=== PATIENT | female | born 1995 | race Caucasian/White ===

== ENCOUNTER 2018-10-26 17:06 | Emergency (ER) | payer BC ==
[~2018-10-26] VITALS: Ht 165.1 cm; Wt 44.5 kg
[2018-10-26 18:29] VITALS: BP 105/59
[2018-10-26] MEDS: IBUPROFEN 600 MG TABLET. PO ONE (18:58)
[2018-10-26] MEDS: DEXAMETHASONE 4 MG TABLET PO ONE (18:58)
[2018-10-26] MEDS ORDERED: IBUP-1007 PO (19:08)
--- NOTE | 2018-10-26 19:08 | PHYS DOC ---
Past Medical History Past Medical History: No Pertinent History (ROSAS VERDUGO APRN) Past Surgical History: Other Additional Past Surgical Histo: IMPLANTED CONTROL, MRSA REMOVAL (ROSAS VERDUGO APRN) Alcohol Use: None Drug Use: None (ROSAS VERDUGO APRN) Adult General Chief Complaint Chief Complaint: SORE THROAT HPI HPI Patient is a 23 year old female who presents with sore throat since she awoke this morning. Patient denies any fever or any other symptoms. (ROSAS VERDUGO APRN) Review of Systems Review of Systems Constitutional: Denies fever or chills [] Eyes: Denies change in visual acuity, redness, or eye pain [] HENT: Denies nasal congestion.+ sore throat [] Respiratory: Denies cough or shortness of breath [] Cardiovascular: No additional information not addressed in HPI [] GI: Denies abdominal pain, nausea, vomiting, bloody stools or diarrhea [] : Denies dysuria or hematuria [] Musculoskeletal: Denies back pain or joint pain [] Integument: Denies rash or skin lesions [] Neurologic: Denies headache, focal weakness or sensory changes [] Endocrine: Denies polyuria or polydipsia [] All other systems were reviewed and found to be within normal limits, except as documented in this note. (ROSAS VERDUGO APRN) Current Medications Current Medications Current Medications Medications (Trade) Dose Ordered Sig/Albino Start Time Stop Time Status Last Admin Dose Admin Dexamethasone (Decadron) 8 mg 1X ONCE 10/26/18 18:45 10/26/18 18:49 DC 10/26/18 18:58 8 MG Ibuprofen (Motrin) 600 mg 1X ONCE 10/26/18 18:45 10/26/18 18:49 DC 10/26/18 18:58 600 MG (PAMELA CHRISTOPHER DO) Allergies Allergies Allergies Coded Allergies Type Severity Reaction Last Updated Verified No Known Drug Allergies 10/26/18 No (PAMELA CHRISTOPHER DO) Physical Exam Physical Exam Constitutional: Well developed, well nourished, no acute distress, non-toxic appearance. [] HENT: Normocephalic, atraumatic, bilateral external ears normal, oropharynx moist, no oral exudates, nose normal. Slight swelling of the tonsils.[] Eyes: PERRLA, EOMI, conjunctiva normal, no discharge. [] Neck: Normal range of motion, no tenderness, supple, no stridor. [] Cardiovascular:Heart rate regular rhythm, no murmur [] Lungs & Thorax: Bilateral breath sounds clear to auscultation [] Abdomen: Bowel sounds normal, soft, no tenderness, no masses, no pulsatile masses. [] Skin: Warm, dry, no erythema, no rash. [] Back: No tenderness, no CVA tenderness. [] Extremities: No tenderness, no cyanosis, no clubbing, ROM intact, no edema. [] Neurologic: Alert and oriented X 3, normal motor function, normal sensory function, no focal deficits noted. [] Psychologic: Affect normal, judgement normal, mood normal. [] (ROSAS VERDUGO APRN) Current Patient Data Vital Signs Vital Signs Date Time Temp Pulse Resp B/P (MAP) Pulse Ox O2 Delivery O2 Flow Rate FiO2 10/26/18 18:29 99.4 86 16 105/59 (74) 99 Room Air 99.4 (PAMELA CHRISTOPHER DO) Lab Values Laboratory Tests Test 10/26/18 18:40 Group A Streptococcus Rapid Negative (NEGATIVE) (PAMELA CHRISTOPHER DO) Lab Values Laboratory Tests Test 10/26/18 18:40 Group A Streptococcus Rapid Negative (NEGATIVE) (ROSAS VERDUGO APRN) EKG EKG [] (ROSAS VERDUGO APRN) Radiology/Procedures Radiology/Procedures [] (ROSAS VERDUGO APRN) Course & Med Decision Making Course & Med Decision Making Patient is a 23 year old female who presents with sore throat since she awoke this morning. Patient denies any fever or any other symptoms. Patient speaks in full clear sentences. Lungs are clear to auscultation all lobes. Heart is reddened and slight swelling and there are no exudates. There are no lymph nodes felt. Patient is given Decadron in the ED. Strep is negative. Patient denies nausea, vomiting, diarrhea, abdominal pain, headache, any other cold symptoms. Patient will need to follow-up with her primary care doctor if she continues to get worse. She states ibuprofen and try saltwater gargles and continue using Chloraseptic [place]. (ROSAS VERDUGO APRN) Dragon Disclaimer Dragon Disclaimer This electronic medical record was generated, in whole or in part, using a voice recognition dictation system. (ROSAS VERDUGO APRN) Departure Departure Impression: Primary Impression: Sore throat (viral) Disposition: HOME, SELF-CARE Condition: STABLE Referrals: UNKNOWN PCP NAME (PCP) Patient Instructions: Sore Throat Additional Instructions: Follow up with primary care provider. Take medications as prescribed. Continue using Chloraseptic spray. Scripts Ibuprofen (IBUPROFEN) 600 Mg Tablet 600 MG PO PRN Q6HRS PRN for INFLAMMATION, #20 TAB Prov: ROSAS VERDUGO APRN 10/26/18 Attending Signature Attending Signature I have reviewed the PA/SQL SERVER BI DEVELOPER's note and plan of care. I was available for consultation as needed during the patient's visit in the emergency department. I agree with the clinical impression, plan, and disposition. (PAMELA CHRISTOPHER DO) ROSAS VERDUGO APRN Oct 26, 2018 19:08 PAMELA CHRISTOPHER DO Oct 29, 2018 00:30
== END 2018-10-26 19:14 | disposition home or self-care (01) ==
LOC: ER 17:06
DX: J02.8 Acute pharyngitis due to other specified organisms (principal); B97.89 Other viral agents as the cause of diseases classified elsewhere
CPT/HCPCS: 87070; 87880; 99283; J8540; 99284-25

== ENCOUNTER 2020-10-20 14:29 | Inpatient (IN) | payer BC, OTHER ==
[~2020-10-20] VITALS: Ht 165.1 cm; Wt 44.0 kg
[~2020-10-20 14:29] MED LIST: IBUP-1007 PO
[2020-10-20] MEDS ORDERED: IV NORMAL SALINE 1000ML BAG 1,000 ML IV ONE ×2 (15:15→16:00)
[2020-10-20] MEDS ORDERED: DEXAMETHASONE 4 MG TABLET PO ONE (15:15)
[2020-10-20] MEDS ORDERED: KETOROLAC 30 MG/ML VIAL. IVP ONE (15:15)
[2020-10-20] MEDS ORDERED: DEXAMETHASONE SOD PHOS 20 MG/5 ML VIAL. IV ONE (15:15)
--- NOTE | 2020-10-20 15:15 | PHYS DOC ---
Past Medical History Past Medical History: No Pertinent History Past Surgical History: Other Additional Past Surgical Histo: IMPLANTED CONTROL, MRSA REMOVAL Smoking Status: Current Every Day Smoker Alcohol Use: None Drug Use: None General Adult EDM: Chief Complaint: SORE THROAT HPI: HPI: Patient is a 25 year old female who presents with sore throat x2 days. She states that she can swallow fluids but it hurts too bad. She states she is been taking Tussin and using throat spray. She denies fever, nausea, vomiting, diarrhea, cough, shortness of breath, chest pain, dizziness, headache, nasal congestion. Patient rates her pain a 10 out of 10. She states her neck is sore. Patient has a history of MRSA, implanted control and she is a smoker. Review of Systems: Review of Systems: Constitutional: Denies fever or chills. [] Eyes: Denies change in visual acuity. [] HENT: Denies nasal congestion. + sore throat. [] Respiratory: Denies cough or shortness of breath. [] Cardiovascular: Denies chest pain or edema. [] GI: Denies abdominal pain, nausea, vomiting, bloody stools or diarrhea. [] : Denies dysuria. [] Musculoskeletal: Denies back pain or joint pain. [] Integument: Denies rash. [] Neurologic: Denies headache, focal weakness or sensory changes. [] Endocrine: Denies polyuria or polydipsia. [] Lymphatic: Denies swollen glands. [] Psychiatric: Denies depression or anxiety. [] Heart Score: Risk Factors: Risk Factors: DM, Current or recent (<one month) smoker, HTN, HLP, family history of CAD, obesity. Risk Scores: Score 0 - 3: 2.5% MACE over next 6 weeks - Discharge Home Score 4 - 6: 20.3% MACE over next 6 weeks - Admit for Clinical Observation Score 7 - 10: 72.7% MACE over next 6 weeks - Early Invasive Strategies Current Medications: Current Medications Medications (Trade) Dose Ordered Sig/Albino Start Time Stop Time Status Last Admin Dose Admin Dexamethasone (Decadron) 10 mg 1X ONCE 10/20/20 15:15 10/20/20 15:16 Cancel Dexamethasone Sodium Phosphate (Decadron) 10 mg 1X ONCE 10/20/20 15:15 10/20/20 15:16 Ketorolac Tromethamine (Toradol 30mg Vial) 30 mg 1X ONCE 10/20/20 15:15 10/20/20 15:16 Sodium Chloride 1,000 ml @ 1,000 mls/hr 1X ONCE 10/20/20 15:15 10/20/20 16:14 Allergies: Allergies: Allergies Coded Allergies Type Severity Reaction Last Updated Verified No Known Drug Allergies 10/26/18 No Physical Exam: PE: Constitutional: Well developed, well nourished, no acute distress, non-toxic appearance. [] HENT: Normocephalic, atraumatic, bilateral external ears normal, oropharynx moist, no oral exudates, nose normal. Bilateral tonsils 2+ and uvula midline but reddened. [] Eyes: PERRLA, EOMI, conjunctiva normal, no discharge. [] Neck: Normal range of motion, no tenderness, supple, no stridor. [] Cardiovascular:Heart rate regular rhythm, no murmur [] Lungs & Thorax: Bilateral breath sounds clear to auscultation [] Abdomen: Bowel sounds normal, soft, no tenderness, no masses, no pulsatile masses. [] Skin: Warm, dry, no erythema, no rash. [] Back: No tenderness, no CVA tenderness. [] Extremities: No tenderness, no cyanosis, no clubbing, ROM intact, no edema. [] Neurologic: Alert and oriented X 3, normal motor function, normal sensory function, no focal deficits noted. [] Psychologic: Affect normal, judgement normal, mood normal. [] Current Patient Data: Vital Signs: Vital Signs Date Time Temp Pulse Resp B/P (MAP) Pulse Ox O2 Delivery O2 Flow Rate FiO2 10/20/20 14:38 99.0 138 18 123/71 (88) 98 Room Air 99.0 EKG: EK and read by Dr. Jones as sinus tachycardia no STEMI. Radiology/Procedures: Radiology/Procedures: [] Impression: [facility] [address] [place] [address] IMAGING REPORT Signed PATIENT: KEVON COMER ACCOUNT: [id number] : 1995 LOCATION: ER AGE: 25 SEX: F EXAM STATUS: REG ER ORD. PHYSICIAN: ROSAS VERDUGO APRN REASON: throat pain, swelling PROCEDURE: CT SOFT TISSUE NECK W/CONTRAST CT soft tissue neck with contrast: Reason for examination: Throat pain and swelling. Helical images were obtained through the neck with intravenous administration of 70 cc of Omnipaque 300. Reconstruction was performed in sagittal and coronal planes. Exposure: One or more of the following individualized dose reduction techniques were utilized for this examination: 1. Automated exposure control 2. Ad justment of the mA and/or kV according to patient size 3. Use of iterative reconstruction technique. No abnormalities of seen at the orbits. Lacrimal glands are symmetric. The paranasal sinuses show a small 1.6 x 0.9 cm polypoid lesion in the right sphen oid sinus and a small 8.8 x 6.3 mm polypoid lesion inferiorly in the right maxillary antrum. There is mild mucosal disease in a few of the ethmoid air cells. Mastoid air cells are clear. The bony fields of the sinuses are intact. No abnormalities of seen at the parotid or submandibular glands. Muscular bundles in the face and neck appear to be symmetric. Vascular structures show no focal abnormalities. The trachea and visualized portion of the esophagus show no abnormalities. No abnormality seen at the thyroid gland. Vocal cords are symmetric. The vallecula and piriform sinuses are symmetric. There is some edema in the nasopharyngeal region bilaterally, right greater than left. There is some heterogeneous decreased density in the right nasopharyngeal region but a definite abscess is not identified. In the right hypopharyngeal region however there is asymmetric edema on the right with a small 6.5 x 3.2 x 7.3 mm hypodensity which may represent a small abscess bulging into the pharynx. No abnormality seen at the epiglottis and airway is patent with no narrowing. There is some mild reactive adenopathy in the submandibular region. No abnormality seen at the mandible or cervical spine. IMPRESSION: Edema in the nasopharyngeal region bilaterally, right greater than left with some heterogeneous density in the right pharyngeal region but no definite abscess is seen. In the hypopharyngeal region on the right however, there is a asymmetric edema with a small 6.5 x 3.2 x 7.3 mm hypodensity which may represent a small abscess with bulging into the pharynx. Small polypoid lesions in the right sphenoid sinus and right maxillary antrum. Electronically signed by: Genevieve Noland MD (10/20/2020 4:51 PM) [facility] DICTATED and SIGNED BY: GENEVIEVE NOLAND MD DATE: 10/20/20 [id number] 0 Course & Med Decision Making: Course & Med Decision Making Pertinent Labs and Imaging studies reviewed. (See chart for details) See HPI. Patient is uncooperative during examination will not open mouth wide enough to look. I could see the arches of her tonsils bilaterally are reddened and appear to be 2+ swollen and uvula looks to be midline but reddened. Patient does have some trismus. She has right-sided neck tenderness with palpation. Afebrile. Unable to get a good examination or look at the tonsils due to patient not opening her mouth wide enough and pulling back during examination. Patient states she is able to swallow fluids but is painful. She is given dexamethasone and Toradol in the ED. alert and oriented x4. Speaks in a low full but clear sentences. Skin pink warm and dry. [] CT shows : IMPRESSION: Edema in the nasopharyngeal region bilaterally, right greater than left with some heterogeneous density in the right pharyngeal region but no definite abscess is seen. In the hypopharyngeal region on the right however, there is a asymmetric edema with a small 6.5 x 3.2 x 7.3 mm hypodensity which may represent a small abscess with bulging into the pharynx. Small polypoid lesions in the right sphenoid sinus and right maxillary antrum. Patient's white count is elevated. Her heart rate is also elevated upon arrival and after 2 bags of fluid it is still remaining at 116. Lactic acid is normal. She is given Zosyn in the ED. patient meets SIRS criteria. It is explained to the patient that she has an abscess and it could be life-threatening if it gets bigger and she does not respond to antibiotics at home and it could possibly close off her airway. This is explained to her by me and Dr. Olmos. Patient is very anxious, tearful and she states that she does not want to stay without her family. She states that she does not want to or risk of dying either. Patient states that she will stay. Her urine shows trichomonas. I have treat her with a one-time dose of 2 g of Flagyl here in the ED given her Zofran. Patient is asking if she can go smoke. I told patient smoking is not allowed. I have ordered her nicotine patch. I have also asked her if she wants any food to eat at this time and she refuses. Patient's urine drug screen is positive for amphetamines. At this time patient is agreeing to be admitted to the hospital. She will be admitted by the hospitalist. Mary Disclaimer: Mary Disclaimer: This electronic medical record was generated, in whole or in part, using a voice recognition dictation system. Date and Time of Reassessment Date: Oct 20, 2020 Time: 17:47 Fluid Challenge Is the fluid challenge complet: No IBW Target Volume Used: No BMI > 30: No Vital Signs Vital Signs: Vital Signs Date Time Temp Pulse Resp B/P (MAP) Pulse Ox O2 Delivery O2 Flow Rate FiO2 10/20/20 14:38 99.0 138 18 123/71 (88) 98 Room Air 99.0 Temperature Source: Oral Respirations Respiratory Effort: Normal Respiratory Pattern: Normal Cardiovascular Pulse Rhythm: Regular Heart: Nml rate, reg. rhythm Lung Sounds Breath Sounds: Clear Capillary Refil Capillary Refill: Rt Hand < 3 seconds Peripheral Pulse Pulse Location: Radial Pulse Strength: Normal (2+) Pulse Assessment Method: Monitor Integumentary Skin: Warm Skin Moisture: Dry Skin Turgor: Normal Skin Color: warm Fingernail Color: WNL Departure Departure Impression: Primary Impression: Abscess of tonsil Additional Impressions: Strep throat SIRS (systemic inflammatory response syndrome) Trichomoniasis of bladder Disposition: 09 ADMITTED INPT THIS HOSP Admitting Physician: GOLD Condition: STABLE Referrals: NO PCP (PCP) ROSAS VERDUGO APRN Oct 20, 2020 15:15
[2020-10-20 15:33] LABS: BASO # 0.1 x10^3/uL (0.0-0.2); BASO % 0 % (0-3); EOS # 0.1 x10^3/uL (0.0-0.7); EOS % 1 % (0-3); HEMATOCRIT 44.4 % (36.0-47.0); HEMOGLOBIN 15.1 g/dL (12.0-15.5); LYMPH # 1.7 x10^3/uL (1.0-4.8); LYMPH % 13 % (24-48); MEAN CORPUSCULAR HEMOGLOBIN 31 pg (25-35); MEAN CORPUSCULAR HGB CONC 34 g/dL (31-37); MEAN CORPUSCULAR VOLUME 90 fL (79-100); MONO # 0.8 x10^3/uL (0.0-1.1); MONO % 6 % (0-9); NEUT # 10.7 x10^3/uL (1.8-7.7); NEUT % 81 % (31-73); PLATELET COUNT 239 x10^3/uL (140-400); RED BLOOD COUNT 4.92 x10^6/uL (3.50-5.40); RED CELL DISTRIBUTION WIDTH 12.9 % (11.5-14.5); WHITE BLOOD COUNT 13.2 x10^3/uL (4.0-11.0)
[2020-10-20 15:42] LABS: CALCIUM 9.1 mg/dL (8.5-10.1); CREATININE 0.8 mg/dL (0.6-1.0); GFR 87.4; POTASSIUM 3.6 mmol/L (3.5-5.1)
[2020-10-20] MEDS ORDERED: CONTRAST GIVEN. MC PRN (15:45)
[2020-10-20] MEDS ORDERED: IOHEXOL 300 MG/ML 100ML VIAL. IV ONE (15:45)
[2020-10-20 15:49] LABS: ALBUMIN 4.2 g/dL (3.4-5.0); ALBUMIN/GLOBULIN RATIO 1.1 (1.0-1.7); PREG TEST PT QUAL NEGATIVE (NEG); TOTAL BILIRUBIN 0.9 mg/dL (0.2-1.0); TOTAL PROTEIN 8.2 g/dL (6.4-8.2)
[2020-10-20] MEDS ORDERED: PIPERACILLIN/TAZOBACTAM 3.375 GM in IV NORMAL SALINE 50ML 50 ML IV ONE (16:00)
--- NOTE | 2020-10-20 16:57 | RAD ---
CT soft tissue neck with contrast: Reason for examination: Throat pain and swelling. Helical images were obtained through the neck with intravenous administration of 70 cc of Omnipaque 3 00. Reconstruction was performed in sagittal and coronal planes. Exposure: One or more of the following individualized dose reduction techniques were utilized for thi s examination: 1. Automated exposure control 2. Adjustment of the mA and/or kV according to patient size 3. Use of iterative reconstruction technique. No abnormalities of seen at the orbits. Lacrimal glands are symmetric. The paranasal sinuses show a s mall 1.6 x 0.9 cm polypoid lesion in the right sphenoid sinus and a small 8.8 x 6.3 mm polypoid lesio n inferiorly in the right maxillary antrum. There is mild mucosal disease in a few of the ethmoid air cells. Mastoid air cells are clear. The bony fields of the sinuses are intact. No abnormalities of se en at the parotid or submandibular glands. Muscular bundles in the face and neck appear to be symmetr ic. Vascular structures show no focal abnormalities. The trachea and visualized portion of the esopha ml show no abnormalities. No abnormality seen at the thyroid gland. Vocal cords are symmetric. The v allecula and piriform sinuses are symmetric. There is some edema in the nasopharyngeal region bilater ally, right greater than left. There is some heterogeneous decreased density in the right nasopharyng eal region but a definite abscess is not identified. In the right hypopharyngeal region however there is asymmetric edema on the right with a small 6.5 x 3.2 x 7.3 mm hypodensity which may represent a s mall abscess bulging into the pharynx. No abnormality seen at the epiglottis and airway is patent wit h no narrowing. There is some mild reactive adenopathy in the submandibular region. No abnormality se en at the mandible or cervical spine. IMPRESSION: Edema in the nasopharyngeal region bilaterally, right greater than left with some heterogeneous densi ty in the right pharyngeal region but no definite abscess is seen. In the hypopharyngeal region on the right however, there is a asymmetric edema with a small 6.5 x 3.2 x 7.3 mm hypodensity which may represent a small abscess with bulging into the pharynx. Small polypoid lesions in the right sphenoid sinus and right maxillary antrum. Electronically signed by: Meri Alonso MD (10/20/2020 4:51 PM) [facility]
[2020-10-20 17:08] LABS: BILIRUBIN,URINE NEGATIVE (NEG); CLARITY,URINE CLEAR; COLOR,URINE YELLOW; NITRITE,URINE NEGATIVE (NEG); PH,URINE 6.5 (<5.0-8.0); PROTEIN,URINE NEGATIVE (NEG-TRACE); UROBILINOGEN,URINE 0.2 mg/dL (0.2 mg/dL)
[2020-10-20 17:14] LABS: BACTERIA,URINE 0 /HPF (0-FEW); BARBITURATES NEG (NEG); BENZODIAZEPINES NEG (NEG); CANNABINOIDS NEG (NEG); COCAINE NEG (NEG); METHADONE NEG (NEG); OPIATES NEG (NEG); PHENCYCLIDINE NEG (NEG); TRICHOMONAS,URINE PRESENT
[2020-10-20 17:15] LABS: AMPHETAMINE/METHAMPHETAMINE POS (NEG)
[2020-10-20] MEDS ORDERED: ONDANSETRON PF 4 MG/2 ML VIAL. IVP ONE (17:30)
[2020-10-20] MEDS ORDERED: metroNIDAZOLE 500 MG TABLET PO ONE (17:30)
[2020-10-20] MEDS ORDERED: NICOTINE 21MG PATCH. TD ONE (17:45)
--- NOTE | 2020-10-20 17:55 | PDOC1 ---
History and Physical Date of Service: DOS: DATE: 10/20/20 TIME: 17:46 Chief Complaint: Chief Complain: Sore throat History of Present Illness: HPI: 25 year old female who presents with sore throat x2 days. She states that she can swallow fluids but it hurts too bad. She states she is been taking Tussin and using throat spray. She denies fever, nausea, vomiting, diarrhea, cough, shortness of breath, chest pain, dizziness, headache, nasal congestion. Patient rates her pain a 10 out of 10. She states her neck is sore. Patient has a history of MRSA, implanted control and she is a smoker. Past Medical/Surgical History: PMH/PSH: Past Medical History: Hx of MRSA Past Surgical History: IMPLANTED CONTROL Allergies: Allergies: Coded Allergies: No Known Drug Allergies (Unverified , 10/26/18) Family History: Family History: Reviewed with no relevant findings Social History: Social History: Smoking Status: Current Every Day Smoker Alcohol Use: None Drug Use: None Current Medications: Current Medications Current Medications Dexamethasone (Decadron) 10 mg 1X ONCE PO ; Start 10/20/20 at 15:15; Stop 10/20/20 at 15:16; Status Cancel Dexamethasone Sodium Phosphate (Decadron) 10 mg 1X ONCE IV Last administered on 10/20/20at 16:10; Start 10/20/20 at 15:15; Stop 10/20/20 at 15:16; Status DC Sodium Chloride 1,000 ml @ 1,000 mls/hr 1X ONCE IV Last administered on 10/20/20at 16:09; Start 10/20/20 at 15:15; Stop 10/20/20 at 16:14; Status DC Ketorolac Tromethamine (Toradol 30mg Vial) 30 mg 1X ONCE IVP Last administered on 10/20/20at 16:09; Start 10/20/20 at 15:15; Stop 10/20/20 at 15:16; Status DC Iohexol (Omnipaque 300 Mg/ml) 70 ml 1X ONCE IV Last administered on 10/20/20at 16:04; Start 10/20/20 at 15:45; Stop 10/20/20 at 15:46; Status DC Info (CONTRAST GIVEN -- Rx MONITORING) 1 each PRN DAILY PRN MC SEE COMMENTS; Start 10/20/20 at 15:45; Stop 10/22/20 at 15:44 Sodium Chloride 1,000 ml @ 1,000 mls/hr 1X ONCE IV Last administered on 10/20/20at 16:12; Start 10/20/20 at 16:00; Stop 10/20/20 at 16:59; Status DC Piperacillin Sod/ Tazobactam Sod 3.375 gm/Sodium Chloride 50 ml @ 100 mls/hr 1X ONCE IV Last administered on 10/20/20at 16:09; Start 10/20/20 at 16:00; Stop 10/20/20 at 16:29; Status DC Metronidazole (Flagyl) 2,000 mg 1X ONCE PO Last administered on 10/20/20at 17:28; Start 10/20/20 at 17:30; Stop 10/20/20 at 17:31; Status DC Ondansetron HCl (Zofran) 4 mg 1X ONCE IVP Last administered on 10/20/20at 17:27; Start 10/20/20 at 17:30; Stop 10/20/20 at 17:31; Status DC Nicotine (Nicoderm Cq 21mg) 1 patch 1X ONCE TD ; Start 10/20/20 at 17:45; Stop 10/20/20 at 17:46; Status DC Active Scripts Active Ibuprofen 600 Mg Tablet 600 Mg PO PRN Q6HRS PRN ROS: Review of Systems Review of System REVIEW OF SYSTEMS: GENERAL: Denies weakness SKIN: No bruising, hair changes or rashes. EYES: No blurred, double or loss of vision. NOSE AND THROAT: No history of nosebleeds, hoarseness or sore throat. HEART: No history of palpitations, chest pain or shortness of breath on exertion. LUNGS: Denies cough, hemoptysis, wheezing or shortness of breath. GASTROINTESTINAL: Denies changes in appetite, nausea, vomiting, diarrhea or constipation. GENITOURINARY: No history of frequency, urgency, hesitancy or nocturia. NEUROLOGIC: Denies history of numbness, tingling, or tremor. PSYCHIATRIC: No history of panic, anxiety or depression. ENDOCRINE: No history of heat or cold intolerance, polyuria or polydipsia. EXTREMITIES: Denies joint pain, pain on walking or stiffness. Physical Exam: Vital Signs: Vital Signs Date Time Temp Pulse Resp B/P (MAP) Pulse Ox O2 Delivery O2 Flow Rate FiO2 10/20/20 14:38 99.0 138 18 123/71 (88) 98 Room Air 99.0 Physcial Exam: GEN: No apparent distress. Alert and oriented HEENT: Normal cephalic, atraumatic, external auditory canals are patent EYES: Extraocular muscles are intact, pupil are equally round and reactive to light and accommodation MUSCULOSKELETAL: Well developed , well nourished, good range of motion ENDOCRINE: No thyromegaly was palpated LYMPHATICS: No cervical chain or axillary nodes were noted HEMATOPOIETIC: No bruising NECK: Supple, no JVD, no thyromegaly was noted LUNGS: Clear to auscultation in all lung arcos without rhonchi or wheezing HEART: RRR, S!, S2 present. Peripheral pulses intact, no obvious murmurs not ed ABDOMEN: Soft, nontender. Positive bowel sounds, no organomegaly, normal bowel sounds EXTREMITIES: Without clubbing, cyanosis, or edema. Pedal pulses intact. Negative Homans sign NEUROLOGIC: Normal speech and tone. A&O x 3, moves all extremities, no obvious focal deficits PSYCHIATRIC: Normal affect, normal mood. Stable SKIN: No ulcerations or rashes, good skin turgor, no jaundice VASCULAR: Good capillary refill, neurovascular bundle appears to be intact Labs: Labs: Laboratory Tests Test 10/20/20 15:20 10/20/20 17:00 White Blood Count 13.2 x10^3/uL (4.0-11.0) Red Blood Count 4.92 x10^6/uL (3.50-5.40) Hemoglobin 15.1 g/dL (12.0-15.5) Hematocrit 44.4 % (36.0-47.0) Mean Corpuscular Volume 90 fL (79-100) Mean Corpuscular Hemoglobin 31 pg (25-35) Mean Corpuscular Hemoglobin Concent 34 g/dL (31-37) Red Cell Distribution Width 12.9 % (11.5-14.5) Platelet Count 239 x10^3/uL (140-400) Neutrophils (%) (Auto) 81 % (31-73) Lymphocytes (%) (Auto) 13 % (24-48) Monocytes (%) (Auto) 6 % (0-9) Eosinophils (%) (Auto) 1 % (0-3) Basophils (%) (Auto) 0 % (0-3) Neutrophils # (Auto) 10.7 x10^3/uL (1.8-7.7) Lymphocytes # (Auto) 1.7 x10^3/uL (1.0-4.8) Monocytes # (Auto) 0.8 x10^3/uL (0.0-1.1) Eosinophils # (Auto) 0.1 x10^3/uL (0.0-0.7) Basophils # (Auto) 0.1 x10^3/uL (0.0-0.2) Sodium Level 139 mmol/L (136-145) Potassium Level 3.6 mmol/L (3.5-5.1) Chloride Level 102 mmol/L (98-107) Carbon Dioxide Level 27 mmol/L (21-32) Anion Gap 10 (6-14) Blood Urea Nitrogen 6 mg/dL (7-20) Creatinine 0.8 mg/dL (0.6-1.0) Estimated GFR (Cockcroft-Gault) 87.4 BUN/Creatinine Ratio 8 (6-20) Glucose Level 93 mg/dL (70-99) Lactic Acid Level 0.9 mmol/L (0.4-2.0) Calcium Level 9.1 mg/dL (8.5-10.1) Total Bilirubin 0.9 mg/dL (0.2-1.0) Aspartate Amino Transf (AST/SGOT) 22 U/L (15-37) Alanine Aminotransferase (ALT/SGPT) 33 U/L (14-59) Alkaline Phosphatase 71 U/L (46-116) Total Protein 8.2 g/dL (6.4-8.2) Albumin 4.2 g/dL (3.4-5.0) Albumin/Globulin Ratio 1.1 (1.0-1.7) Serum Test, Qualitative Negative (NEG) Urine Collection Type Unknown Urine Color Yellow Urine Clarity Clear Urine pH 6.5 (<5.0-8.0) Urine Specific [place] >=1.030 (1.000-1.030) Urine Protein Negative mg/dL (NEG-TRACE) Urine Glucose (UA) Negative mg/dL (NEG) Urine Ketones (Stick) Trace mg/dL (NEG) Urine Blood Large (NEG) Urine Nitrite Negative (NEG) Urine Bilirubin Negative (NEG) Urine Urobilinogen Dipstick 0.2 mg/dL (0.2 mg/dL) Urine Leukocyte Esterase Small (NEG) Urine RBC 6-10 /HPF (0-2) Urine WBC 5-10 /HPF (0-4) Urine Squamous Epithelial Cells Mod /LPF Urine Bacteria 0 /HPF (0-FEW) Urine Mucus Slight /LPF Urine Trichomonas Present Urine Opiates Screen Neg (NEG) Urine Methadone Screen Neg (NEG) Urine Barbiturates Neg (NEG) Urine Phencyclidine Screen Neg (NEG) Urine Amphetamine/Methamphetamine Pos (NEG) Urine Benzodiazepines Screen Neg (NEG) Urine Cocaine Screen Neg (NEG) Urine Cannabinoids Screen Neg (NEG) Urine Ethyl Alcohol Neg (NEG) Laboratory Tests Test 10/20/20 15:20 10/20/20 17:00 White Blood Count 13.2 x10^3/uL (4.0-11.0) Red Blood Count 4.92 x10^6/uL (3.50-5.40) Hemoglobin 15.1 g/dL (12.0-15.5) Hematocrit 44.4 % (36.0-47.0) Mean Corpuscular Volume 90 fL (79-100) Mean Corpuscular Hemoglobin 31 pg (25-35) Mean Corpuscular Hemoglobin Concent 34 g/dL (31-37) Red Cell Distribution Width 12.9 % (11.5-14.5) Platelet Count 239 x10^3/uL (140-400) Neutrophils (%) (Auto) 81 % (31-73) Lymphocytes (%) (Auto) 13 % (24-48) Monocytes (%) (Auto) 6 % (0-9) Eosinophils (%) (Auto) 1 % (0-3) Basophils (%) (Auto) 0 % (0-3) Neutrophils # (Auto) 10.7 x10^3/uL (1.8-7.7) Lymphocytes # (Auto) 1.7 x10^3/uL (1.0-4.8) Monocytes # (Auto) 0.8 x10^3/uL (0.0-1.1) Eosinophils # (Auto) 0.1 x10^3/uL (0.0-0.7) Basophils # (Auto) 0.1 x10^3/uL (0.0-0.2) Sodium Level 139 mmol/L (136-145) Potassium Level 3.6 mmol/L (3.5-5.1) Chloride Level 102 mmol/L (98-107) Carbon Dioxide Level 27 mmol/L (21-32) Anion Gap 10 (6-14) Blood Urea Nitrogen 6 mg/dL (7-20) Creatinine 0.8 mg/dL (0.6-1.0) Estimated GFR (Cockcroft-Gault) 87.4 BUN/Creatinine Ratio 8 (6-20) Glucose Level 93 mg/dL (70-99) Lactic Acid Level 0.9 mmol/L (0.4-2.0) Calcium Level 9.1 mg/dL (8.5-10.1) Total Bilirubin 0.9 mg/dL (0.2-1.0) Aspartate Amino Transf (AST/SGOT) 22 U/L (15-37) Alanine Aminotransferase (ALT/SGPT) 33 U/L (14-59) Alkaline Phosphatase 71 U/L (46-116) Total Protein 8.2 g/dL (6.4-8.2) Albumin 4.2 g/dL (3.4-5.0) Albumin/Globulin Ratio 1.1 (1.0-1.7) Serum Test, Qualitative Negative (NEG) Urine Collection Type Unknown Urine Color Yellow Urine Clarity Clear Urine pH 6.5 (<5.0-8.0) Urine Specific [place] >=1.030 (1.000-1.030) Urine Protein Negative mg/dL (NEG-TRACE) Urine Glucose (UA) Negative mg/dL (NEG) Urine Ketones (Stick) Trace mg/dL (NEG) Urine Blood Large (NEG) Urine Nitrite Negative (NEG) Urine Bilirubin Negative (NEG) Urine Urobilinogen Dipstick 0.2 mg/dL (0.2 mg/dL) Urine Leukocyte Esterase Small (NEG) Urine RBC 6-10 /HPF (0-2) Urine WBC 5-10 /HPF (0-4) Urine Squamous Epithelial Cells Mod /LPF Urine Bacteria 0 /HPF (0-FEW) Urine Mucus Slight /LPF Urine Trichomonas Present Urine Opiates Screen Neg (NEG) Urine Methadone Screen Neg (NEG) Urine Barbiturates Neg (NEG) Urine Phencyclidine Screen Neg (NEG) Urine Amphetamine/Methamphetamine Pos (NEG) Urine Benzodiazepines Screen Neg (NEG) Urine Cocaine Screen Neg (NEG) Urine Cannabinoids Screen Neg (NEG) Urine Ethyl Alcohol Neg (NEG) Images: Images CT NECK w/ contrast IMPRESSION: Edema in the nasopharyngeal region bilaterally, right greater than left with some heterogeneous density in the right pharyngeal region but no definite abscess is seen. In the hypopharyngeal region on the right however, there is a asymmetric edema with a small 6.5 x 3.2 x 7.3 mm hypodensity which may represent a small abscess with bulging into the pharynx. Small polypoid lesions in the right sphenoid sinus and right maxillary antrum. Assessment/Plan Assessment/Plan Sepsis Right hypopharyngeal fluid collection concerning for abscess Genital trichomonal infection Methamphetamine abuse Tobacco abuse Admit to medicine for further management ID consult for antibiotic management Continue empiric IV antibiotics Pending blood and urine cultures Consider ENT consult if worsening of symptoms or no improvement clinically Lovenox for DVT prophylaxis Clear liquid diet Full code Discussed with RN and SW Disposition pending ID evaluation and inpatient management as above Surrogate decision maker is Isadora Amezcua Justifications for Admission Other Justification EZEKIEL MOTT MD Oct 20, 2020 17:55
[2020-10-20] MEDS ORDERED: SENNOSIDES 8.6 MG TABLET PO PRN (18:00)
[2020-10-20] MEDS ORDERED: PIP/TAZO PER PHARMACY MC PRN (18:00)
[2020-10-20] MEDS ORDERED: ONDANSETRON PF 4 MG/2 ML VIAL. IVP PRN (18:00)
[2020-10-20] MEDS ORDERED: fentaNYL PF VIAL 100 MCG/2 ML VIAL IV PRN (18:00)
[2020-10-20] MEDS ORDERED: ACETAMINOPHEN 325 MG TABLET. PO PRN ×2 (18:00)
[2020-10-20] MEDS ORDERED: ONDANSETRON PF 4 MG/2 ML VIAL. IV PRN (18:00)
[2020-10-20] MEDS ORDERED: KETOROLAC 30 MG/ML VIAL. IVP PRN (18:00)
[2020-10-20] MEDS ORDERED: DEXTROSE 50% 25 GM / 50ML DISP.SYRIN. IV PRN (18:00)
[2020-10-20] MEDS ORDERED: DOCUSATE SODIUM 100 MG CAPSULE. PO PRN (18:00)
[2020-10-20] MEDS ORDERED: ENOXAPARIN 40 MG/0.4 ML SYRINGE. SQ SCH (21:00)
[2020-10-20 23:00] VITALS: BP 100/51
[2020-10-20] MEDS: PIPERACILLIN/TAZOBACTAM 3.375 GM in IV NORMAL SALINE 50ML 50 ML IV SCH (23:25)
[2020-10-21 03:00] VITALS: BP 99/49
--- NOTE | 2020-10-21 04:43 | EKG ---
[facility] [address] [place] [address] Test Date: 2020-10-20 Test Time: 18:03:14 Pat Name: KEVON COMER Department: Room: [facility] Gender: F Leadership Program Associate: : 1995 Requested By: ROSAS VERDUGO Order Number: [id number] Reading MD: Akin Rios Measurements Intervals [place] Rate: 104 P: 57 [place]: 118 QRS: 51 QRSD: 72 T: 33 QT: 326 QTc: 435 Interpretive Statements SINUS TACHYCARDIA Electronically Signed On 10-29-2020 13:00:33 [employer] by Akin Rios
[2020-10-21] MEDS: PIPERACILLIN/TAZOBACTAM 3.375 GM in IV NORMAL SALINE 50ML 50 ML IV SCH (05:45)
[2020-10-21 07:00] VITALS: BP 104/61
[2020-10-21 08:34] LABS: BASO % 0 % (0-3); EOS % 0 % (0-3); HEMATOCRIT 35.6 % (36.0-47.0); HEMOGLOBIN 11.9 g/dL (12.0-15.5); LYMPH # 0.9 x10^3/uL (1.0-4.8); LYMPH % 6 % (24-48); MEAN CORPUSCULAR HEMOGLOBIN 30 pg (25-35); MEAN CORPUSCULAR HGB CONC 33 g/dL (31-37); MEAN CORPUSCULAR VOLUME 90 fL (79-100); MONO # 0.6 x10^3/uL (0.0-1.1); MONO % 4 % (0-9); NEUT # 13.4 x10^3/uL (1.8-7.7); NEUT % 90 % (31-73); PLATELET COUNT 219 x10^3/uL (140-400); RED BLOOD COUNT 3.95 x10^6/uL (3.50-5.40); RED CELL DISTRIBUTION WIDTH 12.9 % (11.5-14.5); WHITE BLOOD COUNT 14.9 x10^3/uL (4.0-11.0)
[2020-10-21 09:04] LABS: CALCIUM 8.4 mg/dL (8.5-10.1); CREATININE 0.6 mg/dL (0.6-1.0); GFR 121.8; MAGNESIUM 2.3 mg/dL (1.8-2.4); PHOSPHORUS 2.9 mg/dL (2.6-4.7); POTASSIUM 3.7 mmol/L (3.5-5.1)
[2020-10-21] MEDS ORDERED: ONDA4TAB7 PO (09:22)
[2020-10-21] MEDS ORDERED: AMOX1TAB61 PO (09:22)
--- NOTE | 2020-10-21 10:07 | PDOC3 ---
Discharge Summary Visit Information Date of Admission: Oct 20, 2020 Date of Discharge: Oct 21, 2020 Admitting Diagnosis Comment: Sepsis Right hypopharyngeal fluid collection concerning for abscess Genital trichomonal infection Methamphetamine abuse Tobacco abuse Final Diagnosis Problems Medical Problems: (1) Abscess of tonsil Status: Acute (2) SIRS (systemic inflammatory response syndrome) Status: Acute (3) Strep throat Status: Acute (4) Trichomoniasis of bladder Status: Acute Brief Hospital Course Allergies Allergies Coded Allergies Type Severity Reaction Last Updated Verified No Known Drug Allergies 10/26/18 No Vital Signs Vital Signs Date Time Temp Pulse Resp B/P (MAP) Pulse Ox O2 Delivery O2 Flow Rate FiO2 10/21/20 07:00 98.2 101 18 104/61 (75) 100 Room Air 98.2 Lab Results Laboratory Tests Test 10/20/20 15:15 10/20/20 15:20 10/20/20 17:00 10/21/20 07:48 Group A Streptococcus Rapid Positive (NEGATIVE) White Blood Count 13.2 x10^3/uL (4.0-11.0) 14.9 x10^3/uL (4.0-11.0) Red Blood Count 4.92 x10^6/uL (3.50-5.40) 3.95 x10^6/uL (3.50-5.40) Hemoglobin 15.1 g/dL (12.0-15.5) 11.9 g/dL (12.0-15.5) Hematocrit 44.4 % (36.0-47.0) 35.6 % (36.0-47.0) Mean Corpuscular Volume 90 fL (79-100) 90 fL (79-100) Mean Corpuscular Hemoglobin 31 pg (25-35) 30 pg (25-35) Mean Corpuscular Hemoglobin Concent 34 g/dL (31-37) 33 g/dL (31-37) Red Cell Distribution Width 12.9 % (11.5-14.5) 12.9 % (11.5-14.5) Platelet Count 239 x10^3/uL (140-400) 219 x10^3/uL (140-400) Neutrophils (%) (Auto) 81 % (31-73) 90 % (31-73) Lymphocytes (%) (Auto) 13 % (24-48) 6 % (24-48) Monocytes (%) (Auto) 6 % (0-9) 4 % (0-9) Eosinophils (%) (Auto) 1 % (0-3) 0 % (0-3) Basophils (%) (Auto) 0 % (0-3) 0 % (0-3) Neutrophils # (Auto) 10.7 x10^3/uL (1.8-7.7) 13.4 x10^3/uL (1.8-7.7) Lymphocytes # (Auto) 1.7 x10^3/uL (1.0-4.8) 0.9 x10^3/uL (1.0-4.8) Monocytes # (Auto) 0.8 x10^3/uL (0.0-1.1) 0.6 x10^3/uL (0.0-1.1) Eosinophils # (Auto) 0.1 x10^3/uL (0.0-0.7) 0.0 x10^3/uL (0.0-0.7) Basophils # (Auto) 0.1 x10^3/uL (0.0-0.2) 0.0 x10^3/uL (0.0-0.2) Sodium Level 139 mmol/L (136-145) 139 mmol/L (136-145) Potassium Level 3.6 mmol/L (3.5-5.1) 3.7 mmol/L (3.5-5.1) Chloride Level 102 mmol/L (98-107) 105 mmol/L (98-107) Carbon Dioxide Level 27 mmol/L (21-32) 24 mmol/L (21-32) Anion Gap 10 (6-14) 10 (6-14) Blood Urea Nitrogen 6 mg/dL (7-20) 11 mg/dL (7-20) Creatinine 0.8 mg/dL (0.6-1.0) 0.6 mg/dL (0.6-1.0) Estimated GFR (Cockcroft-Gault) 87.4 121.8 BUN/Creatinine Ratio 8 (6-20) Glucose Level 93 mg/dL (70-99) 123 mg/dL (70-99) Lactic Acid Level 0.9 mmol/L (0.4-2.0) Calcium Level 9.1 mg/dL (8.5-10.1) 8.4 mg/dL (8.5-10.1) Total Bilirubin 0.9 mg/dL (0.2-1.0) Aspartate Amino Transf (AST/SGOT) 22 U/L (15-37) Alanine Aminotransferase (ALT/SGPT) 33 U/L (14-59) Alkaline Phosphatase 71 U/L (46-116) Total Protein 8.2 g/dL (6.4-8.2) Albumin 4.2 g/dL (3.4-5.0) Albumin/Globulin Ratio 1.1 (1.0-1.7) Serum Test, Qualitative Negative (NEG) Urine Collection Type Unknown Urine Color Yellow Urine Clarity Clear Urine pH 6.5 (<5.0-8.0) Urine Specific [place] >=1.030 (1.000-1.030) Urine Protein Negative mg/dL (NEG-TRACE) Urine Glucose (UA) Negative mg/dL (NEG) Urine Ketones (Stick) Trace mg/dL (NEG) Urine Blood Large (NEG) Urine Nitrite Negative (NEG) Urine Bilirubin Negative (NEG) Urine Urobilinogen Dipstick 0.2 mg/dL (0.2 mg/dL) Urine Leukocyte Esterase Small (NEG) Urine RBC 6-10 /HPF (0-2) Urine WBC 5-10 /HPF (0-4) Urine Squamous Epithelial Cells Mod /LPF Urine Bacteria 0 /HPF (0-FEW) Urine Mucus Slight /LPF Urine Trichomonas Present Urine Opiates Screen Neg (NEG) Urine Methadone Screen Neg (NEG) Urine Barbiturates Neg (NEG) Urine Phencyclidine Screen Neg (NEG) Urine Amphetamine/Methamphetamine Pos (NEG) Urine Benzodiazepines Screen Neg (NEG) Urine Cocaine Screen Neg (NEG) Urine Cannabinoids Screen Neg (NEG) Urine Ethyl Alcohol Neg (NEG) Phosphorus Level 2.9 mg/dL (2.6-4.7) Magnesium Level 2.3 mg/dL (1.8-2.4) Laboratory Tests Test 10/20/20 15:15 10/20/20 15:20 10/20/20 17:00 10/21/20 07:48 Group A Streptococcus Rapid Positive (NEGATIVE) White Blood Count 13.2 x10^3/uL (4.0-11.0) 14.9 x10^3/uL (4.0-11.0) Red Blood Count 4.92 x10^6/uL (3.50-5.40) 3.95 x10^6/uL (3.50-5.40) Hemoglobin 15.1 g/dL (12.0-15.5) 11.9 g/dL (12.0-15.5) Hematocrit 44.4 % (36.0-47.0) 35.6 % (36.0-47.0) Mean Corpuscular Volume 90 fL (79-100) 90 fL (79-100) Mean Corpuscular Hemoglobin 31 pg (25-35) 30 pg (25-35) Mean Corpuscular Hemoglobin Concent 34 g/dL (31-37) 33 g/dL (31-37) Red Cell Distribution Width 12.9 % (11.5-14.5) 12.9 % (11.5-14.5) Platelet Count 239 x10^3/uL (140-400) 219 x10^3/uL (140-400) Neutrophils (%) (Auto) 81 % (31-73) 90 % (31-73) Lymphocytes (%) (Auto) 13 % (24-48) 6 % (24-48) Monocytes (%) (Auto) 6 % (0-9) 4 % (0-9) Eosinophils (%) (Auto) 1 % (0-3) 0 % (0-3) Basophils (%) (Auto) 0 % (0-3) 0 % (0-3) Neutrophils # (Auto) 10.7 x10^3/uL (1.8-7.7) 13.4 x10^3/uL (1.8-7.7) Lymphocytes # (Auto) 1.7 x10^3/uL (1.0-4.8) 0.9 x10^3/uL (1.0-4.8) Monocytes # (Auto) 0.8 x10^3/uL (0.0-1.1) 0.6 x10^3/uL (0.0-1.1) Eosinophils # (Auto) 0.1 x10^3/uL (0.0-0.7) 0.0 x10^3/uL (0.0-0.7) Basophils # (Auto) 0.1 x10^3/uL (0.0-0.2) 0.0 x10^3/uL (0.0-0.2) Sodium Level 139 mmol/L (136-145) 139 mmol/L (136-145) Potassium Level 3.6 mmol/L (3.5-5.1) 3.7 mmol/L (3.5-5.1) Chloride Level 102 mmol/L (98-107) 105 mmol/L (98-107) Carbon Dioxide Level 27 mmol/L (21-32) 24 mmol/L (21-32) Anion Gap 10 (6-14) 10 (6-14) Blood Urea Nitrogen 6 mg/dL (7-20) 11 mg/dL (7-20) Creatinine 0.8 mg/dL (0.6-1.0) 0.6 mg/dL (0.6-1.0) Estimated GFR (Cockcroft-Gault) 87.4 121.8 BUN/Creatinine Ratio 8 (6-20) Glucose Level 93 mg/dL (70-99) 123 mg/dL (70-99) Lactic Acid Level 0.9 mmol/L (0.4-2.0) Calcium Level 9.1 mg/dL (8.5-10.1) 8.4 mg/dL (8.5-10.1) Total Bilirubin 0.9 mg/dL (0.2-1.0) Aspartate Amino Transf (AST/SGOT) 22 U/L (15-37) Alanine Aminotransferase (ALT/SGPT) 33 U/L (14-59) Alkaline Phosphatase 71 U/L (46-116) Total Protein 8.2 g/dL (6.4-8.2) Albumin 4.2 g/dL (3.4-5.0) Albumin/Globulin Ratio 1.1 (1.0-1.7) Serum Test, Qualitative Negative (NEG) Urine Collection Type Unknown Urine Color Yellow Urine Clarity Clear Urine pH 6.5 (<5.0-8.0) Urine Specific [place] >=1.030 (1.000-1.030) Urine Protein Negative mg/dL (NEG-TRACE) Urine Glucose (UA) Negative mg/dL (NEG) Urine Ketones (Stick) Trace mg/dL (NEG) Urine Blood Large (NEG) Urine Nitrite Negative (NEG) Urine Bilirubin Negative (NEG) Urine Urobilinogen Dipstick 0.2 mg/dL (0.2 mg/dL) Urine Leukocyte Esterase Small (NEG) Urine RBC 6-10 /HPF (0-2) Urine WBC 5-10 /HPF (0-4) Urine Squamous Epithelial Cells Mod /LPF Urine Bacteria 0 /HPF (0-FEW) Urine Mucus Slight /LPF Urine Trichomonas Present Urine Opiates Screen Neg (NEG) Urine Methadone Screen Neg (NEG) Urine Barbiturates Neg (NEG) Urine Phencyclidine Screen Neg (NEG) Urine Amphetamine/Methamphetamine Pos (NEG) Urine Benzodiazepines Screen Neg (NEG) Urine Cocaine Screen Neg (NEG) Urine Cannabinoids Screen Neg (NEG) Urine Ethyl Alcohol Neg (NEG) Phosphorus Level 2.9 mg/dL (2.6-4.7) Magnesium Level 2.3 mg/dL (1.8-2.4) Brief Hospital Course History and Physical Date of Service: DOS: DATE: 10/20/20 TIME: 17:46 Chief Complaint: Chief Complain: Sore throat History of Present Illness: HPI: 25 year old female who presents with sore throat x2 days. She states that she can swallow fluids but it hurts too bad. She states she is been taking Tussin and using throat spray. She denies fever, nausea, vomiting, diarrhea, cough, shortness of breath, chest pain, dizziness, headache, nasal congestion. Patient rates her pain a 10 out of 10. She states her neck is sore. Patient has a history of MRSA, implanted control and she is a smoker. Her hospital stay was quite benign and she responded quite fast to Zosyn that was started upon admission. Patient imaging studies and laboratory data were reviewed the patient did not present any stridor no airway compromise and her p ain pretty much resolved. Patient will continue a course of antibiotics with Augmentin at home. Signs and symptoms of alarm and when to seek medical attention were discussed. I have encouraged her to find a primary care physician in the community to establish care and have follow-up. Gen.: well-developed well-nourished in no apparent distress Head: Normal shape atraumatic Eyes: Pupils equal reactive to light and accommodation, normal conjunctivae and lids Ears: Normal shape Nose: Normal shape no trauma Mouth: No exudates of the back of throat no thrush no lesions Neck: Supple no JVD no carotid bruit or lymphadenopathy no thyromegaly Chest: Lungs clear to auscultation with good inspiratory effort no crackles rales or rhonchi Cardiovascular: S1-S2 regular rhythm no murmurs gallops or rubs Abdomen: Bowel sounds present soft nontender no hepatosplenomegaly appreciated sign Extremities: No clubbing no cyanosis no edema peripheral pulses palpated bilaterally Neurological: Alert awake oriented in person time place and situation, cranial nerves II through XII intact, no motor or sensory deficits appreciated Psych: Appropriate mood, cooperative Assessment Assessment [facility] [address] [place], [place] [id number] IMAGING REPORT Signed PATIENT: KEVON COMER ACCOUNT: [id number] : 1995 LOCATION: ER AGE: 25 SEX: F EXAM STATUS: REG ER ORD. PHYSICIAN: ROSAS VERDUGO APRN REASON: throat pain, swelling PROCEDURE: CT SOFT TISSUE NECK W/CONTRAST CT soft tissue neck with contrast: Reason for examination: Throat pain and swelling. Helical images were obtained through the neck with intravenous administration of 70 cc of Omnipaque 300. Reconstruction was performed in sagittal and coronal planes. Exposure: One or more of the following individualized dose reduction techniques were utilized for this examination: 1. Automated exposure control 2. Adjustment of the mA and/or kV according to patient size 3. Use of iterative reconstruction technique. No abnormalities of seen at the orbits. Lacrimal glands are symmetric. The paranasal sinuses show a small 1.6 x 0.9 cm polypoid lesion in the right sphenoid sinus and a small 8.8 x 6.3 mm polypoid lesion inferiorly in the right maxillary antrum. There is mild mucosal disease in a few of the ethmoid air cells. Mastoid air cells are clear. The bony fields of the sinuses are intact. No abnormalities of seen at the parotid or submandibular glands. Muscular bundles in the face and neck appear to be symmetric. Vascular structures show no focal abnormalities. The trachea and visualized portion of the esophagus show no abnormalities. No abnormality seen at the thyroid gland. Vocal cords are symmetric. The vallecula and piriform sinuses are symmetric. There is some edema in the nasopharyngeal region bilaterally, right greater than left. There is some heterogeneous decreased density in the right nasopharyngeal region but a definite abscess is not identified. In the right hypopharyngeal region however there is asymmetric edema on the right with a small 6.5 x 3.2 x 7.3 mm hypodensity which may represent a small abscess bulging into the pharynx. No abnormality seen at the epiglottis and airway is patent with no narrowing. There is some mild reactive adenopathy in the submandibular region. No abnormality seen at the mandible or cervical spine. IMPRESSION: Edema in the nasopharyngeal region bilaterally, right greater than left with some heterogeneous density in the right pharyngeal region but no definite abscess is seen. In the hypopharyngeal region on the right however, there is a asymmetric edema with a small 6.5 x 3.2 x 7.3 mm hypodensity which may represent a small abscess with bulging into the pharynx. Small polypoid lesions in the right sphenoid sinus and right maxillary antrum. Electronically signed by: Meri Alonso MD (10/20/2020 4:51 PM) [facility] Discharge Information Condition at Discharge: Improved Follow Up: Weeks Disposition/Orders: D/C to Home Scheduled Amoxicillin/Potassium Clav (Augmentin 875-125 Tablet) 1 Each Tablet, 1 TAB PO BID for peritonsillar abscess for 10 Days, #20 Ref 0 Prescribed by: GLEN DANGELO MD on 10/21/20921 Ondansetron Hcl (Zofran) 4 Mg Tablet, 1 TAB PO Q6HRS for nausea, #20 Prescribed by: GLEN DANGELO MD on 10/21/20 0922 Scheduled PRN Ibuprofen (Ibuprofen) 600 Mg Tablet, 600 MG PO PRN Q6HRS PRN for INFLAMMATION, #20 Prescribed by: ROSAS VERDUGO, MEDICAL CASE MANAGER on 10/26/18 190 Justicifation of Admission Dx: Justifications for Admission: Justification of Admission Dx: Yes Comments: Abscess and airway compromise GLEN DANGELO MD Oct 21, 2020 10:07
[2020-10-21 10:29] LABS: % ATYL 1 % (0-0); % BANDS 2 % (0-9); % LYMPHS 6 % (24-48); % SEGS 91 % (35-66); PLT ESTIMATE ADEQUATE (ADEQUATE)
[2020-10-21 11:00] VITALS: BP 116/60
--- NOTE | 2020-10-21 11:36 | NUR ---
SW following. Discussed with RN, pt from home, room air, regular diet. Discharge order for home with self care. No further SW needs.
--- NOTE | 2020-10-21 12:14 | NUR ---
Discharge Note: Patient was discharged home with self care. Patients IV was discontinued without any complications per REYNOLD. Patient was given discharge summary/instructions, follow-ups, and educational material. Patients new prescriptions were sent to patients preferred pharmacy. Patient was given a handout with primary care doctors. Patient decided to ambulate to the ER entrance accompanied by Chris FLAHERTY, patient took all personal belongings with her, patients car was sitting in the ER entrance since patient drove herself.
== END 2020-10-21 12:17 | disposition home or self-care (01) | DRG 872 ==
LOC: ER 14:29 → ED HOLD 17:42 → 5 NORTH 18:52
PROVIDERS: ADMIT Internal Medicine; ATTEND Internal Medicine
DX: A41.9 Sepsis, unspecified organism (principal); J36 Peritonsillar abscess; F17.200 Nicotine dependence, unspecified, uncomplicated; A59.03 Trichomonal cystitis and urethritis; F15.10 Other stimulant abuse, uncomplicated; R59.9 Enlarged lymph nodes, unspecified; Z86.14 Personal history of Methicillin resistant Staphylococcus aureus infection
CPT/HCPCS: 36415; 70491; 80048; 80053; 80307; 81001; 83605; 83735; 84100; 84703; 85007; 85025; 87040; 87086; 87880; 93005; 96365; 96375; 99285; J1100; J1885; J2405; J2543; J7030; Q9967; G0378

== ENCOUNTER 2021-01-02 08:15 | Emergency (ER) | payer OTHER ==
[~2021-01-02] VITALS: Ht 165.1 cm; Wt 45.0 kg
[~2021-01-02 08:15] MED LIST changes: +AMOX1TAB61 PO; +ONDA4TAB7 PO
[2021-01-02 08:24] VITALS: BP 122/73
[2021-01-02] MEDS ORDERED: NAPH15DR3 EACHEYE (09:57)
--- NOTE | 2021-01-02 09:57 | ED.ADGEN ---
Past Medical History Past Medical History: No Pertinent History Past Surgical History: Other Additional Past Surgical Histo: IMPLANTED CONTROL, MRSA REMOVAL Smoking Status: Current Every Day Smoker Alcohol Use: None Drug Use: None General Adult EDM: Chief Complaint: EYE PROBLEMS HPI: HPI: Patient is 25-year-old female presents to the emergency room with bilateral eye irritation. She states they feel very itchy. She woke up with some kind of discharge or substance in her eye. She states that looks like a blurry substance and that she would like it out. She has never had anything like this before. She denies any eyelid swelling. She denies any other complaints. She did not get anything in her eye. She denies any trauma to the eye. Review of Systems: Review of Systems: Complete ROS is negative unless otherwise documented in HPI Allergies: Allergies: Allergies Coded Allergies Type Severity Reaction Last Updated Verified No Known Drug Allergies 10/26/18 No Physical Exam: PE: General: Awake, alert, NAD. Well Nourished, well hydrated. Cooperative HENT: Atraumatic, airway patent, moist oral mucosa Eyes: EOMI, PERRL, bilateral minimal conjunctivitis. R eye with clear string of drainage. Neck: Supple, trachea midline Respiratory: CTA bilaterally, normal effort, no wheezing/crackles CV: RRR, no murmur, cap refill <2 GI: Soft, nondistended, nontender, no masses MSK: No obvious deformities Skin: Warm, dry, intact Neuro: A&O x3, speech NL, sensory and motor grossly intact, no focal deficits Psych: Normal affect, normal mood, not suicidal or homicidal Current Patient Data: Vital Signs: Vital Signs Date Time Temp Pulse Resp B/P (MAP) Pulse Ox O2 Delivery O2 Flow Rate FiO2 01/02/21 08:24 98.0 114 20 122/73 (89) 99 Room Air 98.0 EKG: EKG: [] Heart Score: C/O Chest Pain: N/A Risk Factors: Risk Factors: DM, Current or recent (<one month) smoker, HTN, HLP, family history of CAD, obesity. Risk Scores: Score 0 - 3: 2.5% MACE over next 6 weeks - Discharge Home Score 4 - 6: 20.3% MACE over next 6 weeks - Admit for Clinical Observation Score 7 - 10: 72.7% MACE over next 6 weeks - Early Invasive Strategies Radiology/Procedures: Radiology/Procedures: [] Course & Med Decision Making: Course & Med Decision Making Pertinent Labs and Imaging studies reviewed. (See chart for details) Patient is 25-year-old female who presents to the emergency room complaining of bilateral eye itching. Patient appears to have allergic conjunctivitis. String of clear discharge was removed from the right eye. Patient will be placed on allergy drops. Patient's test results and vitals while in the ED were fully reviewed and discussed with the patient. Patient is stable and at this time does not need admission to the hospital. We have discussed strict return precautions and the importance of following up with their Primary Care Physician. Patient stated understanding and was given an opportunity to ask any questions. Patient is in agreement with plan. Dragon Disclaimer: Mary Disclaimer: This electronic medical record was generated, in whole or in part, using a voice recognition dictation system. Departure Departure Impression: Primary Impression: Conjunctivitis Disposition: HOME / SELF CARE / HOMELESS Condition: STABLE Referrals: NO PCP (PCP) Patient Instructions: Allergic Conjunctivitis Scripts Naphazoline Hcl/Pheniramine (OPCON-A EYE DROPS) 15 Ml Drops 1 DROP EACHEYE QID for 10 Days, #15 ML 0 Refills Prov: NEERU BOGGS MD 01/02/21 NEERU BOGGS MD Jan 02, 2021 09:57
== END 2021-01-02 10:01 | disposition home or self-care (01) ==
LOC: ER 08:15
DX: H10.89 Other conjunctivitis (principal); F17.200 Nicotine dependence, unspecified, uncomplicated; Z98.890 Other specified postprocedural states
CPT/HCPCS: 99282